=== PATIENT | male | born 1960 | race Caucasian/White ===

== ENCOUNTER 2018-01-17 20:12 | Emergency (ER) | payer OTHER ==
[~2018-01-17] VITALS: Ht 165.1 cm; Wt 93.9 kg
[~2018-01-17 20:12] MED LIST: ASPIR 8181 MG PO; GLUCOTROL5 MG PO; LIPITOR10 MG PO; LISINOPRIL5 MG PO; MECLIZINE 25 MG25 M1 PO; METFORMIN HCL500 MG PO; NOHOMEMEDICATIONS; PHENERGAN 25 MG25 M1 PO
[2018-01-17 20:23] LABS: ABSOLUTE BASOPHILS 0.1 thou/uL (0.0-0.2); ABSOLUTE EOSINOPHILS 0.1 thou/uL (0.0-0.7); ABSOLUTE LYMPHOCYTES 4.5 thou/uL (0.8-5.3); ABSOLUTE MONOCYTES 0.9 thou/uL (0.0-1.2); ABSOLUTE NEUTROPHILS 7.3 thou/uL (1.6-8.1); BASOPHILS 0.5 %; EOSINOPHILS 0.9 %; HEMOGLOBIN 16.5 gm/dL (14.0-18.0); LYMPHOCYTES 34.7 %; MCH 29.6 pg (26.0-34.0); MCHC 34.3 g/dL (28.0-37.0); MCV 86.3 fL (80.0-100.0); MONOCYTES 6.9 %; MPV 8.7 fl. (7.2-11.1); NUCLEATED RBCS 0 /100WBC; PLATELET COUNT* 232 thou/uL (150-400); RBC 5.57 mil/uL (4.50-6.00); RDW-CV 13.2 % (10.5-14.5); WBC 12.9 thou/uL (4.0-11.0)
[2018-01-17 20:31] LABS: ANION GAP 13 mmol/L (7-16); BUN 29 mg/dL (7-18); CALCIUM 9.4 mg/dL (8.5-10.1); CHLORIDE 102 mmol/L (98-107); CO2 24 mmol/L (21-32); CREATININE 0.9 mg/dL (0.6-1.3); GLUCOSE 243 mg/dL (70-99); POTASSIUM 3.4 mmol/L (3.5-5.1); SODIUM 139 mmol/L (136-145)
[2018-01-17 20:34] LABS: PROTIME 9.8 Seconds (9.20-11.50)
[2018-01-17 20:42] LABS: ALBUMIN 4.1 g/dL (3.4-5.0); ALKALINE PHOSPHATASE 64 U/L (46-116); LIPASE 88 U/L (73-393); NT-PRO BRAIN NAT PEPTIDE 123 pg/mL (<300); SGOT 19 U/L (15-37); SGPT 31 U/L (30-65); TOTAL BILIRUBIN 0.3 mg/dL (<0.1-1.0); TOTAL PROTEIN 8.1 g/dL (6.4-8.2); TROPONIN-I LEVEL <0.06 ng/mL (<0.06)
[2018-01-17 20:53] LABS: URINE BILIRUBIN NEGATIVE (Negative); URINE BLOOD TRACE (Negative); URINE CLARITY CLEAR; URINE COLOR STRAW; URINE GLUCOSE-RANDOM 3+ (Negative); URINE KETONES 1+ (Negative); URINE LEUKOCYTES-REFLEX NEGATIVE (Negative); URINE NITRITE-REFLEX NEGATIVE (Negative); URINE PROTEIN TRACE (Negative); URINE SPECIFIC GRAVITY 1.015 (1.005-1.030); URINE UROBILINOGEN 0.2 E.U./dl (0.2-1.0)
[2018-01-17] MEDS ORDERED: MOTION RELIEF25 MG PO (22:46)
[2018-01-17] MEDS ORDERED: ZOFRAN ODT4 MG PO (22:46)
[2018-01-17 23:45] VITALS: BP 158/87
--- NOTE | 2018-01-19 17:18 | EKG ---
[place] [address] ELECTROCARDIOGRAM REPORT Name: LOLA RINALDI [id number] Admission: 01/17/18 Attend Phys: Discharge: 01/17/18 Date of : 60 Report #: [id number] THIS REPORT FOR: //name// [facility] ED Test Date: 2018-01-17 Test Time: 20:32:01 Pat Name: LOLA RINALDI Department: Room: Gender: M [employer]: ESPINOZA : 1960 Requested By: Tyra Clemente Order Number: [id number] MD: Keyon Leal Measurements Intervals [place]essel Rate: 78 P: 35 ME: 134 QRS: 50 QRSD: 95 T: 24 QT: 401 QTc: 457 Interpretive Statements Sinus rhythm Consider right ventricular hypertrophy Minimal ST elevation, anterior leads Compared to ECG 08/10/2016 12:29:28 ST (T wave) deviation now present Sinus tachycardia no longer present Electronically Signed On 01-19-2018 17:17:56 CDT by Keyon Leal [email or web address] <ELECTRONICALLY SIGNED> By: Keyon Leal MD, [facility] 01/19/18 1717 31 31 Keyon Leal MD, FAC /EPI
== END 2018-01-17 23:45 | disposition home or self-care (01) ==
LOC: M.ERS 20:12
PROVIDERS: Emergency Medicine
DX: I10 Essential (primary) hypertension (principal); R42 Dizziness and giddiness; E78.00 Pure hypercholesterolemia, unspecified; E11.9 Type 2 diabetes mellitus without complications; F17.210 Nicotine dependence, cigarettes, uncomplicated